=== PATIENT | female | born 1985 | race Caucasian/White ===

== ENCOUNTER → 2017-05-10 | Outpatient (CLI) | payer OTHER ==
[~2017-05-10] MED LIST: BUPR-79 PO; CLON1TAB3 PO; MIRT15TA2 PO; PRENTAB26 PO; SERT-234 PO
--- NOTE | 2017-05-10 13:05 | DIAGNOSTIC IMAGING REPORT ---
PELVIC ULTRASOUND, TRANSABDOMINAL AND TRANSVAGINAL HISTORY: Vaginal bleeding. DISESASE OR ABNORMALITY COMPARISON: Pelvic ultrasound 09/28/2013. FINDINGS: Uterus: 8.3 x 5.8 x 5.3 cm. The uterus is heterogeneous. No definite masses. Endometrial stripe: 5 mm in thickness. Right ovary: Normal in size and demonstrates normal color flow. Left ovary: Normal in size and demonstrates normal color flow. A 3.2 x 2.1 x 3.1 cm simple cyst. Miscellaneous:No pelvic free fluid. IMPRESSION: 1. Slightly heterogeneous uterus without definite mass. 2. Normal endometrial stripe. 3. A 3.2 cm left ovarian simple cyst. Electronically signed by: Corby Baker M.D. 05/10/2017 1:03 PM Dictated Date/Time: 05/10/2017 1:01 PM
== END | disposition home or self-care (01) ==
LOC: C.ULTR 11:39
PROVIDERS: ATTEND Physician Assistant
DX: N92.6 Irregular menstruation, unspecified (principal); N83.292 Other ovarian cyst, left side